=== PATIENT | male | born 2000 | race Caucasian/White ===

== ENCOUNTER 2021-02-03 14:27 | Emergency (ER) | payer SELFPAY ==
[2021-02-03 14:43] VITALS: BP 124/73
[2021-02-03 15:12] LABS: Basophils % (Auto) 0.3 % (0.0-1.8); Eosinophils # (Auto) 0.1 K/mm3 (0.0-0.4); Eosinophils % (Auto) 0.7 % (0.0-4.3); Lymphocytes # (Auto) 2.3 K/mm3 (1.2-5.4); Lymphocytes % (Auto) 26.6 % (13.4-35.0); Mean Corpuscular HGB Conc 36 % (32-34); Mean Corpuscular Volume 91 fl (84-94); Monocytes # (Auto) 0.5 K/mm3 (0.0-0.8); Monocytes % (Auto) 6.1 % (0.0-7.3); Platelet Count 243 K/mm3 (140-440); Red Blood Count 5.37 M/mm3 (3.65-5.03); Red Cell Distribution Width 12.5 % (13.2-15.2)
[2021-02-03 15:13] LABS: Hematocrit 48.7 % (35.5-45.6); Hemoglobin 17.5 gm/dl (11.8-15.2)
--- NOTE | 2021-02-03 15:31 | Emergency Department Report ---
ED General Adult HPI - General Chief complaint: Hyperglycemia Stated complaint: ELEVATED BLOOD GLUCOSE, HEADACHE, VOMITING Source: patient Mode of arrival: Ambulatory Limitations: No Limitations - History of Present Illness Initial comments: Patient presents to the ER today with concern that his blood sugar is elevated. Patient states that 3 days ago he accidentally pinched one of his left fingers using a tongue and he left a small bruise to the skin. He states that one of h is coworkers saw it today and today and looked at it was turning black and he told him that something could be wrong with his blood and recommend that he come get checked. Patient reports that he does have a history of type 2 diabetes but is not currently on any medication. He states that he used to weigh around 300 pounds and 2 years ago he had lost 100 pounds and he was taken off all his meds by his doctor but he has not been compliant with following up with his primary care doctor to have his blood sugar checked. He states that after mentioning his past history to his coworkers to check his blood sugar at work and it was 300. Patient reports that other than having a small bruise to his finger he denies any other symptoms at this time he states that he just went to get checked. Complaint: Elevated blood sugar -: days(s) (Today) - Related Data Home Medications Medication Instructions Recorded Confirmed Last Taken No Known Home Medications [No 09/13/15 09/13/15 Unknown Reported Home Medications] Allergies Allergy/AdvReac Type Severity Reaction Status Date / Time No Known Allergies Allergy Unverified 09/13/15 09:39 ED Review of Systems ROS: Stated complaint: ELEVATED BLOOD GLUCOSE, HEADACHE, VOMITING Other details as noted in HPI Comment: All other systems reviewed and negative Constitutional: denies: chills, fever Eyes: denies: eye pain, eye discharge, vision change ENT: denies: ear pain, throat pain Respiratory: denies: cough, shortness of breath, SOB with exertion, wheezing Cardiovascular: denies: chest pain, palpitations, dyspnea on exertion, edema, syncope, paroxysmal nocturnal dyspnea Endocrine: no symptoms reported Gastrointestinal: denies: abdominal pain, nausea, diarrhea, constipation, hematemesis, hematochezia Genitourinary: denies: urgency, dysuria, frequency, hematuria, discharge, testicular pain, testicular mass Skin: other (Bruising to finger). denies: rash, lesions, change in color, change in hair/nails, pruritus Neurological: denies: headache, weakness, paresthesias, confusion, abnormal gait, vertigo Psychiatric: denies: anxiety, depression Hematological/Lymphatic: denies: easy bleeding, easy bruising ED Past Medical Hx - Past Medical History Previous Medical History?: Yes Hx Diabetes: Yes Hx Asthma: Yes - Surgical History Past Surgical History?: Yes Additional Surgical History: tonsillectomy - Social History Smoking Status: Never Smoker Substance Use Type: None - Medications Home Medications: Home Medications Medication Instructions Recorded Confirmed Last Taken Type No Known Home Medications [No 09/13/15 09/13/15 Unknown History Reported Home Medications] ED Physical Exam - General Limitations: No Limitations General appearance: alert, in no apparent distress - Head Head exam: Present: atraumatic, normocephalic, normal inspection - Eye Eye exam: Present: normal appearance, PERRL, EOMI Pupils: Present: normal accommodation - ENT ENT exam: Present: normal exam, mucous membranes moist - Neck Neck exam: Present: normal inspection, full ROM - Respiratory Respiratory exam: Present: normal lung sounds bilaterally. Absent: respiratory distress, wheezes, rales, rhonchi - Cardiovascular Cardiovascular Exam: Present: regular rate, normal rhythm, normal heart sounds - GI/Abdominal GI/Abdominal exam: Present: soft. Absent: distended, tenderness, guarding, rebound - Neurological Exam Neurological exam: Present: alert, oriented X3, CN II-XII intact, normal gait. Absent: motor sensory deficit - Psychiatric Psychiatric exam: Present: normal affect, normal mood - Skin Skin exam: Present: other (Tiny hematoma noted to the distal palm aspect of his left finger. No associated infection. No swelling and no tenderness to palpation.) ED Course Vital Signs 02/03/21 14:39 Temperature 98.4 F Pulse Rate 94 H Respiratory 18 Rate Blood Pressure 124/73 [Right] O2 Sat by Pulse 96 Oximetry ED Medical Decision Making - Lab Data Result diagrams: 02/03/21 15:02 02/03/21 15:02 Critical care attestation.: If time is entered above; I have spent that time in minutes in the direct care of this critically ill patient, excluding procedure time. ED Disposition Clinical Impression: Hematoma, History of type 2 diabetes mellitus, Finger contusion Disposition: TO HOME OR SELFCARE Is pt being admited?: No Does the pt Need Aspirin: No Condition: Stable Instructions: Contusion, [id number], Type 2 Diabetes Mellitus, Diagnosis, Adult Additional Instructions: I recommend that you follow-up with the primary care doctor listed on your discharge instructions for continued monitoring of your blood sugar including hemoglobin A1c. Return to the ER if your symptoms changes or worsens in any way. Referrals: KATY MUNOZ MD [Staff Physician] - 3-5 Days Time of Disposition: 16:54
[2021-02-03 16:24] LABS: Alanine Aminotransferase 20 units/L (7-56); Albumin 4.6 g/dL (3.9-5); Blood Urea Nitrogen 17 mg/dL (9-20); Calcium 9.4 mg/dL (8.4-10.2); Hemolysis Index 23
[2021-02-03 16:40] LABS: BUN/Creatinine Ratio 24
[2021-02-03 17:57] LABS: Bilirubin,Urine NEG (Negative); Blood,Urine NEG (Negative); Color,Urine Yellow (Yellow); Mucus,Urine FEW /HPF; Protein,Urine <15 mg/dL mg/dL (Negative); Urobilinogen,Urine < 2.0 mg/dL (<2.0); WBC,Urine < 1.0 /HPF (0.0-6.0)
== END 2021-02-03 19:00 | disposition home or self-care (01) ==
LOC: ED 14:27
DX: S60.222A Contusion of left hand, initial encounter (principal); J45.909 Unspecified asthma, uncomplicated; Z90.89 Acquired absence of other organs; Z79.899 Other long term (current) drug therapy; X58.XXXA Exposure to other specified factors, initial encounter; Y93.89 Activity, other specified; Y92.89 Other specified places as the place of occurrence of the external cause; Y99.8 Other external cause status
CPT/HCPCS: 36415; 80053; 81001; 82962; 85025; 99283